=== PATIENT | female | born 1965 | race Two or more races ===

== ENCOUNTER 2019-05-18 12:09 | Inpatient (IN) | payer OTHER ==
[~2019-05-18] VITALS: Ht 160 cm; Wt 61.7 kg
[2019-05-20] MEDS ORDERED: BLOOD SUGAR DIAGNOSTIC 1 EACH STRIP IN ONE (11:00)
[2019-05-20] MEDS ORDERED: MAG HYDROX/AL HYDROX/SIMETH 30 ML UDC PO PRN (11:00)
[2019-05-20] MEDS ORDERED: MAGNESIUM HYDROXIDE 30 ML UDC PO PRN (11:00)
[2019-05-20] MEDS ORDERED: BREX2TAB PO (11:48)
[2019-05-20] MEDS ORDERED: VORT20TA PO (11:48)
[2019-05-20] MEDS ORDERED: CARI3CAP PO (11:48)
[2019-05-20] MEDS ORDERED: CLON2TAB11 PO ×2 (11:48)
[2019-05-20] MEDS ORDERED: ARIP5TAB10 PO (11:48)
[2019-05-20] MEDS ORDERED: DULO60CA64 PO (11:48)
[2019-05-20] MEDS ORDERED: TRAZ-214 PO (11:48)
[2019-05-20] MEDS: OLANZAPINE 5 MG TABLET PO SCH ×2 (13:21→21:03)
[2019-05-20] MEDS: LITHIUM CARBONATE 150 MG CAPSULE PO SCH ×2 (13:21→21:06)
[2019-05-20 13:28] LABS: THYROID STIMULATING HORMONE 2.904 uIU/mL (0.358-3.74)
[2019-05-20 16:00] VITALS: BP 125/78
[2019-05-20 20:15] VITALS: BP 135/64
[2019-05-20] MEDS: MIRTAZAPINE 15 MG TABLET PO SCH (21:06)
[2019-05-21 07:34] LABS: ALBUMIN 3.6 g/dL (3.4-5.0); BILIRUBIN,TOTAL 0.5 mg/dL (0.2-1.0); CREATININE 1.1 mg/dL (0.6-1.3); POTASSIUM 3.4 mmol/L (3.5-5.1); TOTAL PROTEIN, SERUM 6.5 g/dL (6.4-8.2)
[2019-05-21 07:45] LABS: CHOLESTEROL 145 mg/dL (<200); HDL CHOLESTEROL 40 mg/dL (40-60); LDL 86 mg/dL (0-99); TRIGLYCERIDES 115 mg/dL (30-150)
[2019-05-21 08:00] VITALS: BP 134/95
[2019-05-21] MEDS: LITHIUM CARBONATE 150 MG CAPSULE PO SCH ×2 (08:36→21:03)
[2019-05-21] MEDS: OLANZAPINE 5 MG TABLET PO SCH ×2 (08:36→21:03)
[2019-05-21] MEDS ORDERED: POTASSIUM CHLORIDE 20 MEQ TAB.PRT.SR PO SCH ×2 (09:30→11:00)
--- NOTE | 2019-05-21 09:42 | NUR ---
WOUND CARE CONSULT: PT PRESENTS WITH BILATERAL WRIST DRY SCRATCHES, PRESENT ON ADMISSION. NO TENDERNESS OR DRAINAGE NOTED. PT IS AMBULATORY AND CONTINENT. WILL SEE PRN. CURRENT DELFIN SCORE IS 21.
[2019-05-21] MEDS: ACETAMINOPHEN 325 MG TABLET PO PRN (14:16)
--- NOTE | 2019-05-21 15:10 | NUR ---
Group Note: SW encouraged the pt to participate in group therapy on 05/21/19 at 2pm discussing discharge planning but the pt refused. Pt appeared to be depressed and stated that she was hearing voices. Pt stated that she wanted to return to her home with her fiance and that she did not want to be in the hospital. Pt stated that she wanted to remain in her room so SW provided an individual intervention with the pt. SW and pt discussed the importance of the pt being stable before returning to her home.
[2019-05-21 16:00] VITALS: BP 100/71
[2019-05-21 20:26] VITALS: BP 121/81
[2019-05-21] MEDS: MIRTAZAPINE 15 MG TABLET PO SCH (21:03)
[2019-05-21] MEDS: ZOLPIDEM TARTRATE 5 MG TABLET PO PRN (23:21)
--- NOTE | 2019-05-21 23:23 | NUR ---
GPS RN NOTES: PATIENT VERBALIZED UNABLE TO SLEEP. PER PATIENT REQUESTED AMBIEN 5MG PO. ADMINISTERED AMBIEN 5 MG PO. CONTINUE TO MONITOR.
[2019-05-22 08:00] VITALS: BP 126/71
--- NOTE | 2019-05-22 09:00 | NUR ---
IDALIA spoke with pts parmjit Zamora [phone] who stated that he believes what triggered pts suicide attempt was the medication she was on. Per parmjit he stated that pt was on several psychiatric medications and he believes she was not on the correct medications and dosages. SW informed him that psychiatrist has ordered different psych medications for pt as he also noticed pt was on several counteractive medications. Parmjit agreed and stated that it is safe for pt to be discharged back home.
[2019-05-22] MEDS: OLANZAPINE 5 MG TABLET PO SCH ×2 (09:17→20:38)
[2019-05-22] MEDS: LITHIUM CARBONATE 150 MG CAPSULE PO SCH ×2 (09:17→20:38)
--- NOTE | 2019-05-22 09:33 | NUR ---
INITIAL DISCHARGE PLAN: Per pt she wishes to return back home [address] [address] [facility] [address]. Per pts patricia Zamora [phone] it is safe for pt to return back home. SW will help form a safe and proper discharge in collaboration with .
--- NOTE | 2019-05-22 10:38 | NUR ---
UR NOTE: IDALIA faxed clinicals to Anurag with [facility] fax: [phone] P: [phone] for review.
[2019-05-22 15:08] LABS: CALCIUM, SERUM 9.3 mg/dL (8.5-10.1); CREATININE 1.1 mg/dL (0.6-1.3); POTASSIUM 4.3 mmol/L (3.5-5.1)
--- NOTE | 2019-05-22 15:45 | NUR ---
GROUP NOTE: SW encouraged pt to participate in group on this present day discussing "impaired reality-testing" Pt stated she wanted to remain in her room as her voices are telling her that she cannot trust anyone. SW provide intervention and reassured her that she was safe and that she could come out of her room. SW attempted to encourage pt to get up from bed but pt refused stating that she was not feeling well in her head and wanted to stay in bed.
[2019-05-22 16:00] VITALS: BP 142/91
[2019-05-22] MEDS: LORAZEPAM 0.5 MG TABLET PO PRN (16:00)
--- NOTE | 2019-05-22 16:01 | NUR ---
GPS/RN-NOTES PATIENT STATED" I NEED ATIVAN FOR MY ANXIETY" ATIVAN 1MG P.O GIVEN PRN ORDER. WILL CONT. MONITORING FOR SAFETY AND BEHAVIOR.
--- NOTE | 2019-05-22 17:00 | NUR ---
GPS/RN-NOTES PATIENT LAYING IN BED AWAKE,ALERT CALM,NO ACUTE DISTRESS NOTED.
[2019-05-22 20:35] VITALS: BP 142/84
[2019-05-22 20:55] VITALS: BP 142/84
[2019-05-22] MEDS: ZOLPIDEM TARTRATE 5 MG TABLET PO PRN (21:54)
[2019-05-22] MEDS: MIRTAZAPINE 15 MG TABLET PO SCH (21:54)
--- NOTE | 2019-05-22 22:16 | NUR ---
forge operator notes pt calmed at this time, compliant with her medication, sleep meds also given as she requested. educate for for possible side effect. kept her warm and comfortable at all times. will continue closely monitoring for safety.
--- NOTE | 2019-05-23 | NUR ---
gaming dealer notes pt sleeping comfortably in bed without any acute distress noted. kept her warm and comfortable at all times. will continue closely monitoring for safety.
[2019-05-23] MEDS: LORAZEPAM 0.5 MG TABLET PO PRN ×2 (03:59→16:36)
--- NOTE | 2019-05-23 03:59 | NUR ---
outsole scheduler notes pt woke and seems anxious and she stated feeling panic attack. ativan given as ordered. will continue monitoring.
--- NOTE | 2019-05-23 05:11 | NUR ---
full time paramedic notes checked her and seen in bed lying resting with eyes closed. respiration even and unlabored. kept her warm and comfortable at all times. will continue monitoring.
[2019-05-23 08:00] VITALS: BP 100/61
[2019-05-23] MEDS: LITHIUM CARBONATE 150 MG CAPSULE PO SCH ×2 (08:18→21:10)
[2019-05-23] MEDS: OLANZAPINE 5 MG TABLET PO SCH ×2 (08:19→21:10)
--- NOTE | 2019-05-23 12:11 | NUR ---
UR NOTE: IDALIA faxed clinicals to Anurag with [facility] fax: [phone] P: [phone] for review.
--- NOTE | 2019-05-23 13:41 | NUR ---
IDALIA met with pts parmjit Zamora [phone] on this present day and informed him pt has an anticipated discharge date for Saturday May 25, 2019. Parmjit states that pt is doing much better and agrees with the discharge date.
--- NOTE | 2019-05-23 14:55 | NUR ---
Group Note: SW encouraged pt to participate in group on 05/23/19 at 2pm discussing social supports. Pt stated that she has a fiance who is her support system who is there for her constantly and even came to visit her at the hospital earlier today. Pt stated that she will be returning to her home with him at the end of this week and that she will have continued support.
[2019-05-23 16:00] VITALS: BP 131/87
--- NOTE | 2019-05-23 16:37 | NUR ---
GPS RN NOTE; PT REQUESTING ATIVAN FOR ANXIETY . ATIVAN 1 MG PO PRN GIVEN PER ORDER WILL CONTINUE MONITORING FOR SAFETY AND BEHAVIOR Q 15 MIN.
[2019-05-23 20:17] VITALS: BP 127/90
[2019-05-23] MEDS: MIRTAZAPINE 15 MG TABLET PO SCH (21:10)
[2019-05-23] MEDS: ZOLPIDEM TARTRATE 5 MG TABLET PO PRN (22:04)
[2019-05-24] MEDS: LORAZEPAM 0.5 MG TABLET PO PRN ×2 (00:55→10:52)
[2019-05-24 08:00] VITALS: BP 134/85
[2019-05-24] MEDS: OLANZAPINE 5 MG TABLET PO SCH (08:23)
[2019-05-24] MEDS: LITHIUM CARBONATE 150 MG CAPSULE PO SCH ×2 (08:23→21:31)
--- NOTE | 2019-05-24 10:52 | NUR ---
RN NOTE: PT REQUESTING ATIVAN FOR ANXIETY. 1MG ADMINISTERED ORDERED. WILL CONTINUE TO MONITOR PT PER 15 MIN
--- NOTE | 2019-05-24 12:25 | NUR ---
SW contacted pts aprmjit Zamora [phone] to inform him pts mood is unstable and is currently experiencing stronger auditory hallucinations with suicidal ideation. SW informed parmjit that pts psych medications have been changed. Parmjit agreed and stated that pt shared with him last night that she was not feeling too well and agreed with the medication change.
--- NOTE | 2019-05-24 12:36 | NUR ---
UR NOTE: IDALIA faxed clinicals to Anurag with [facility] fax: [phone] P: [phone] for review and informed him pt will not be discharged tomorrow Tuesday05/25/19.
[2019-05-24] MEDS: risperiDONE 1 MG TABLET PO SCH (12:55)
[2019-05-24] MEDS: ACETAMINOPHEN 325 MG TABLET PO PRN ×2 (15:30→23:28)
--- NOTE | 2019-05-24 15:30 | NUR ---
GPS RN NOTE: ACETOMINOPHEN ADMINISTERED FOR HEADACHE.
--- NOTE | 2019-05-24 15:30 | NUR ---
GROUP NOTE: SW encouraged pt to participate in group on 05/24/19 at 2pm discussing "discharge planning." Pt stated that she is not ready to go home as her voices are still telling her to kill herself. Pt stated that the medication is not working and that the voices went away but came back. SW provided intervention and assessed for suicidality pt stated that at this time she did not have a plan and just wanted to feel better so she can return home with her fiance. SW reassured pt that her medications had been changed and also encouraged pt to verbalize suicidal ideation with hospital staff at any time.
[2019-05-24 16:00] VITALS: BP 143/90
--- NOTE | 2019-05-24 19:30 | NUR ---
GPS RN NOTE, RECEIVED PATIENT AWAKE AND IN BED, NO S/S OR COMPLAINTS OF PAIN AT THIS TIME. PATIENT IS DISPLAYING NO S/S OF APPARENT DISTRESS AT THIS TIME. PATIENT BREATHING IS UNLABORED WITH EQUAL RISE AND FALL OF THE CHEST. PATIENT IS ALERT AND ORIENTED X 3 ON ROOM AIR WITH A SPO2 95 % PATIENT IS COMPLIANT WITH MEDICATION, ISOLATIVE, ANXIOUS, COOPERATIVE. PATIENT DENIES SUICIDE IDEATIONS AND HOMICIDAL IDEATIONS AT THIS TIME. PATIENT ASSISTED WITH TURNING AND REPOSITIONING Q2HR AND PRN FOR COMFORT AND CIRCULATION. PATIENT HAS NO NEEDS AT THIS TIME. PATIENT EDUCATED ON THE USE OF THE CALL ROBIN. PATIENT BED SIDE RAILS UP X 2 FOR SAFETY, BED IS LOCKED AND LOW. WILL CONTINUE TO MONITOR THIS PATIENT Q15 MIN WITH THE HELP OF STAFF TO MAINTAIN SAFETY.
[2019-05-24 20:00] VITALS: BP 123/82
[2019-05-24] MEDS ORDERED: QUETIAPINE FUMARATE 100 MG TABLET PO SCH (22:00)
[2019-05-24] MEDS: ZOLPIDEM TARTRATE 5 MG TABLET PO PRN (23:01)
--- NOTE | 2019-05-24 23:01 | NUR ---
GPS RN NOTE, PATIENT HAS A COMPLAINT OF NOT BEING ABLE TO SLEEP AND IS REQUESTING AMBIEN AT THIS TIME. PATIENT VITAL SIGNS ARE STABLE. GAVE AMBIEN 5 MG PO HS ORDERED. WILL REASSESS FOR INSOMNIA AND I WILL CONTINUE TO MONITOR THIS PATIENT.
--- NOTE | 2019-05-24 23:28 | NUR ---
GPS RN NOTE, PATIENT HAS A COMPLAINT OF A HEAD ACHE AT 2 OUT 10 ON THE PAIN SCALE AND IS REQUESTING TYLENOL AT THIS TIME. PATIENT VITAL SIGNS ARE STABLE. GAVE TYLENOL 650 MG PO Q6HR PRN ORDERED. WILL REASSESS FOR PAIN AND I WILL CONTINUE TO MONITOR THIS PATIENT.
[2019-05-25 08:00] VITALS: BP 129/84
[2019-05-25] MEDS: LITHIUM CARBONATE 150 MG CAPSULE PO SCH ×2 (08:44→21:18)
[2019-05-25] MEDS: risperiDONE 1 MG TABLET PO SCH (08:44)
[2019-05-25] MEDS: LORAZEPAM 0.5 MG TABLET PO PRN (09:52)
--- NOTE | 2019-05-25 09:57 | NUR ---
RN NOTE- PT W ANXIETY. PRN ATIVAN GIVEN
--- NOTE | 2019-05-25 10:36 | NUR ---
IDALIA contacted pts parmjit Zamora [phone] to inform him psychiatrist has ordered discharge for Tuesday05/26/19. IDALIA informed him that pt is denying telling psychiatrist that she was hearing voices and that she was feeling suicidal yesterday and is now denying suicidal ideation and auditory hallucinations. Parmjit stated that he will call SW back to coordinate cotton picker for tomorrow 05/26/19.
--- NOTE | 2019-05-25 11:14 | NUR ---
UR NOTE: IDALIA faxed clinicals to Anurag with [facility] fax: [phone] P: [phone] for review and informed him pt will be discharged tomorrow Tuesday05/26/19.
--- NOTE | 2019-05-25 12:28 | NUR ---
DISCHARGE NOTE: Pt will be discharged on Tuesday05/26/19 at 6:00pm via private vehicle home [address] [address] [facility] [address]. Pts erica Zamora [phone] has been notified and will be picking pt up and transporting home. Pts mood is euthymic with congruent affect. Pt denied visual/auditory hallucinations. Pt will follow up with Psychiatrist: Dr. Aguilera [facility] [address] [address] on June 01, 2019 at 11:30am and also has an appointments for therapy with DARLYN Oswald at [place] [phone] on June 18, 2019 at 1:30pm. Pt will also follow up with Assessment Nurse Practitioner: Dr. Shadi Graham Address: [address] [place], [place] [id number] on May 30, 2019 at 11:20am. The multidisciplinary exit care form was done, printed, signed, and given to the patient.
[2019-05-25 16:00] VITALS: BP 114/83
[2019-05-25 20:00] VITALS: BP 133/94
[2019-05-25 20:21] VITALS: BP 133/94
[2019-05-25] MEDS: ZOLPIDEM TARTRATE 5 MG TABLET PO PRN (21:19)
[2019-05-25] MEDS ORDERED: QUETIAPINE FUMARATE 100 MG TABLET PO SCH (22:00)
[2019-05-25] MEDS: ACETAMINOPHEN 325 MG TABLET PO PRN (22:12)
[2019-05-26 08:00] VITALS: BP 143/93
[2019-05-26] MEDS: risperiDONE 1 MG TABLET PO SCH (08:11)
[2019-05-26] MEDS: LITHIUM CARBONATE 150 MG CAPSULE PO SCH (08:12)
--- NOTE | 2019-05-26 09:32 | NUR ---
DR. OROZCO GAVE AN ORDER TO D/C HOLD AND D/C HOME AND TO FOLLOW UP WITH PSYCH AND MEDICAL DOCTORS. SPOKE TO DAVID AT [phone] AND SAID HE WILL COME TO PICK HER UP LATER.
--- NOTE | 2019-05-26 11:12 | NUR ---
DARY ZUNIGA MADE AWARE OF THE DISCHARGE.
[2019-05-26] MEDS: LORAZEPAM 0.5 MG TABLET PO PRN (14:16)
--- NOTE | 2019-05-26 14:18 | NUR ---
RN NOTE- PT W ANXIOUSNESS. PRN ATIVAN GIVEN
[2019-05-26 16:00] VITALS: BP 146/69
--- NOTE | 2019-05-26 18:51 | NUR ---
RN NOTE PT D/C TO HOME VIA [facility]. ID WRISTBAND REMOVED, BELONGINGS RETURNED TO PT, VSS, CALM IN NO DISTRESS. ALERT, ORIENTED X4. MEDICATION PRESCRIPTIONS AND DISCHARGE INSTRUCTIONS REVIEWED AND UNDERSTOOD. ESCORTED OFF UNIT BY STAFF.
--- NOTE | 2019-05-28 09:28 | NUR ---
RN NOTE- LATE ENTRY. PT ADMITTED FOR SUICIDAL IDEATION AND ATTEMPT ON Apr . PT SWALLOWED HANDFUL OF PILLS. TRAZADONE. PT ARRIVED TO UNIT, TEARFUL, POOR EYE CONTACT, QUIET VOICE, LIMITED INSIGHT. STATES, "VOICES TELL ME THAT I'M NO GOOD AND I SHOULD HURT MYSELF" VSS, ORIENTED TO UNIT. CONTRACTS FOR SAFETY AT PRESENT. PHYSICAL CHECK AND ASSESSMENT PER UNIT PROTOCOL. SAFETY CHECKS PER GPS PROTOCOL. MD NOTIFIED OF ADMISSION.
--- NOTE | 2019-05-28 13:34 | NUR ---
UR NOTE: IDALIA faxed discharge clinicals to Anurag with [facility] fax: [phone] P: [phone] for review.
== END 2019-05-26 18:50 | disposition home or self-care (01) | DRG 885 ==
LOC: GPS 05-20 10:17
PROVIDERS: ADMIT Psychiatry & Neurology Psychiatry; ATTEND Nurse Practitioner Acute Care
DX: F25.1 Schizoaffective disorder, depressive type (principal); N73.0 Acute parametritis and pelvic cellulitis; F41.9 Anxiety disorder, unspecified; E87.6 Hypokalemia; Z79.899 Other long term (current) drug therapy; Z91.5 Personal history of self-harm; F29 Unspecified psychosis not due to a substance or known physiological condition
CPT/HCPCS: 36415; 80048-TC; 80053-TC; 80061-TC; 82962-TC; 84439-TC; 84443-TC; 84481; 87081-TC